=== PATIENT | male | born 1980 | race Caucasian/White ===

== ENCOUNTER 2017-08-29 09:09 | Emergency (ER) | payer OTHER ==
[~2017-08-29] VITALS: Ht 165.1 cm; Wt 73.0 kg
[2017-08-29 09:11] VITALS: BP 156/105; PULSE 85; RESP 15; TEMP 98.4; O2SAT 98
[2017-08-29 11:18] VITALS: BP 151/104; PULSE 86; RESP 19
[2017-08-29] MEDS ORDERED: GABA300C5 PO (11:18)
[2017-08-29] MEDS ORDERED: ALLO300T2 PO (11:18)
[2017-08-29] MEDS ORDERED: PROB500T8 PO (11:18)
[2017-08-29 11:21] VITALS: O2SAT 100
[2017-08-29] MEDS ORDERED: hydrALAZINE HCL 20 MG/ML VIAL IV PUSH ONE (11:30)
--- NOTE | 2017-08-29 11:30 | PD ---
HPI Chief Complaint: Hypertension Time Seen by Provider: 11:19 Travel History International Travel<30 days: No Contact w/Intl Traveler<30days: No Traveled to known affect area: No History of Present Illness HPI Patient comes in stating that he is noted that his blood pressures have been trending up over the last year and a half or so. Today he does not have any particular specific complaints, he was just referred here from [facility] where he was there for alcohol related to help. He is part of a program there and has been doing well for a while. Patient states that he has been under a little bit more stress than usual but as he stated before that he has noticed that his blood pressures have been climbing over the past couple of months. Patient states that he is not a drug abuser such as amphetamines or cocaine of any form. No known drug allergy History of bipolar, gout. PFSH Past Medical History Bipolar Disorder: Yes (NO MEDS) Gout: Yes Past Surgical History Surgical History: No Previous Surgery Social History Alcohol Use: Yes (OCCAS) Tobacco Use: No Substance Use: No (quit 4 months ago) Allergies-Medications (Allergen,Severity, Reaction): Coded Allergies: No Known Allergies (Unverified Adverse Reaction, Unknown, 08/29/17) Reported Meds & Prescriptions Reported Meds & Active Scripts Active Reported Probenecid 500 Mg Tab 250 Mg PO Q12HR Allopurinol 300 Mg Tab 300 Mg PO BID Gabapentin 300 Mg Cap 300 Mg PO BID Review of Systems Except as stated in HPI: all other systems reviewed are Neg General / Constitutional: No: Fever Eyes: No: Visual changes HENT: No: Headaches Cardiovascular: Positive: Other (Elevated blood pressure) Respiratory: No: Shortness of Breath Gastrointestinal: No: Abdominal Pain Genitourinary: No: Dysuria Musculoskeletal: No: Pain Skin: No Rash Neurologic: No: Weakness Psychiatric: No: Depression Endocrine: No: Polydipsia Hematologic/Lymphatic: No: Easy Bruising Physical Exam Narrative GENERAL: SKIN: Warm and dry. HEAD: Atraumatic. Normocephalic. EYES: Pupils equal and round. No scleral icterus. No injection or drainage. ENT: No nasal bleeding or discharge. Mucous membranes pink and moist. NECK: Trachea midline. No JVD. CARDIOVASCULAR: Regular rate and rhythm. RESPIRATORY: No accessory muscle use. Clear to auscultation. Breath sounds equal bilaterally. GASTROINTESTINAL: Abdomen soft, non-tender, nondistended. MUSCULOSKELETAL: Extremities without clubbing, cyanosis, or edema. No obvious deformities. NEUROLOGICAL: Awake and alert. No obvious cranial nerve deficits. Motor grossly within normal limits. Five out of 5 muscle strength in the arms and legs. Normal speech. PSYCHIATRIC: Appropriate mood and affect; insight and judgment normal. Data Data Last Documented VS Vital Signs Date Time Temp Pulse Resp B/P (MAP) Pulse Ox O2 Delivery O2 Flow Rate FiO2 08/29/17 12:00 100 16 152/88 (109) 99 Room Air 08/29/17 09:11 98.4 Orders Orders Electrocardiogram (08/29/17 10:17) Complete Blood Count With Diff (08/29/17 10:17) Basic Metabolic Panel (Bmp) (08/29/17 10:17) Ckmb (Isoenzyme) Profile (08/29/17 10:17) Troponin I (08/29/17 10:17) Iv Access Insert/Monitor (08/29/17 10:17) Ecg Monitoring (08/29/17 10:17) Oxygen Administration (08/29/17 10:17) Oximetry (08/29/17 10:17) Chest, Pa & Lat (08/29/17 10:17) Drug Screen, Random Urine (08/29/17 11:20) Hydralazine Inj (Apresoline Inj) (08/29/17 11:30) Labs Laboratory Tests Test 08/29/17 10:46 White Blood Count 7.6 TH/MM3 Red Blood Count 5.55 MIL/MM3 Hemoglobin 15.7 GM/DL Hematocrit 45.2 % Mean Corpuscular Volume 81.4 FL Mean Corpuscular Hemoglobin 28.2 PG Mean Corpuscular Hemoglobin Concent 34.7 % Red Cell Distribution Width 15.4 % Platelet Count 249 TH/MM3 Mean Platelet Volume 8.3 FL Neutrophils (%) (Auto) 67.8 % Lymphocytes (%) (Auto) 22.0 % Monocytes (%) (Auto) 7.8 % Eosinophils (%) (Auto) 1.4 % Basophils (%) (Auto) 1.0 % Neutrophils # (Auto) 5.1 TH/MM3 Lymphocytes # (Auto) 1.7 TH/MM3 Monocytes # (Auto) 0.6 TH/MM3 Eosinophils # (Auto) 0.1 TH/MM3 Basophils # (Auto) 0.1 TH/MM3 CBC Comment DIFF FINAL Differential Comment Blood Urea Nitrogen 14 MG/DL Creatinine 1.03 MG/DL Random Glucose 92 MG/DL Calcium Level 9.2 MG/DL Sodium Level 138 MEQ/L Potassium Level 4.4 MEQ/L Chloride Level 103 MEQ/L Carbon Dioxide Level 27.9 MEQ/L Anion Gap 7 MEQ/L Estimat Glomerular Filtration Rate 82 ML/MIN Total Creatine Kinase 64 U/L Troponin I LESS THAN 0.02 NG/ML MDM Medical Decision Making Medical Screen Exam Complete: Yes Emergency Medical Condition: Yes Medical Record Reviewed: Yes Interpretation(s) EKG shows normal sinus rhythm, 76 bpm, normal intervals, incomplete right bundle branch block pattern noted, however no prolongation of the QRS, LVH pattern noted, but no evidence of any STEMI pattern. Differential Diagnosis Anemia versus electrolyte imbalance versus kidney failure versus congestive heart failure versus illicit drug-induced Narrative Course Chest x-ray shows no acute cardiopulmonary abnormality identified per radiologist Electrolytes are all within normal limits including normal kidney functions normal GFR and a negative first set of cardiac enzymes CBC is also without any evidence of leukocytosis, no anemia normal platelet count and no left shift. Diagnosis Primary Impression: Hypertension Patient Instructions: General Instructions, Hypertension (DC) Scripts Lisinopril (Lisinopril) 40 Mg Tab 40 MG PO DAILY for Blood Pressure Management, #30 TAB 0 Refills Prov: Shilo Stapleton MD 08/29/17 Disposition: 01 DISCHARGE HOME Condition: Stable Shilo Stapleton MD Aug 29, 2017 11:30
[2017-08-29 11:43] LABS: AUTOMATED NEUTROPHIL # 5.1 TH/MM3 (1.8-7.7); BASOPHIL # 0.1 TH/MM3 (0-0.2); EOSINOPHIL # 0.1 TH/MM3 (0-0.4); EOSINOPHIL % 1.4 % (0.0-4.0); HEMATOCRIT 45.2 % (39.0-51.0); HEMOGLOBIN 15.7 GM/DL (13.0-17.0); LYMPHOCYTE # 1.7 TH/MM3 (1.0-4.8); MEAN CELL VOLUME 81.4 FL (80.0-100.0); MEAN CORPUSCULAR HEMOGLOBIN 28.2 PG (27.0-34.0); MEAN CORPUSCULAR HGB CONC 34.7 % (32.0-36.0); MEAN PLATELET VOLUME 8.3 FL (7.0-11.0); MONO % 7.8 % (0.0-8.0); MONOCYTE # 0.6 TH/MM3 (0-0.9); NEUT % 67.8 % (16.0-70.0); PLATELET COUNT 249 TH/MM3 (150-450); RED BLOOD COUNT 5.55 MIL/MM3 (4.50-5.90); RED CELL DISTRIBUTION WIDTH 15.4 % (11.6-17.2); WHITE BLOOD COUNT 7.6 TH/MM3 (4.0-11.0)
--- NOTE | 2017-08-29 11:52 | RADRPT ---
EXAM DATE/TIME: 08/29/2017 10:39 [facility] COMPARISON: No previous studies available for comparison. INDICATIONS : Chest pain. MEDICAL HISTORY : None. SURGICAL HISTORY : None. ENCOUNTER: Initial ACUITY: 1 day PAIN SCORE: 5/10 LOCATION: Left lower chest FINDINGS: PA and lateral views of the chest demonstrate a normal-sized cardiac silhouette. There is no effusion , consolidation, or pneumothorax. The bones and soft tissues demonstrate no acute abnormality. CONCLUSION: No acute cardiopulmonary abnormality is identified. Noe Schroeder MD on August 29, 2017 at 11:48 Board Certified Radiologist. This report was verified electronically.
[2017-08-29 12:00] VITALS: BP 152/88; PULSE 100; RESP 16; O2SAT 99
[2017-08-29 12:17] LABS: BICARBONATE 27.9 MEQ/L (21.0-32.0); BLOOD UREA NITROGEN 14 MG/DL (7-18); CALCIUM 9.2 MG/DL (8.5-10.1); CHLORIDE 103 MEQ/L (98-107); CREATININE 1.03 MG/DL (0.60-1.30); GLOMERULAR FILTRATION RATE 82 ML/MIN (>89); GLUCOSE,RANDOM 92 MG/DL (74-106); SODIUM (NA) 138 MEQ/L (136-145)
[2017-08-29 12:21] LABS: TROPONIN I LESS THAN 0.02 NG/ML (0.02-0.05)
[2017-08-29] MEDS ORDERED: LISI40TA PO (12:52)
[2017-08-29 13:29] VITALS: BP 141/95
--- NOTE | 2017-08-29 18:45 | EKG ---
Date Performed: 08/29/2017 Time Performed: 10:49:52 PTAGE: 37 years EKG: Sinus rhythm POSSIBLE RIGHT VENTRICULAR CONDUCTION DELAY BORDERLINE ECG NO PREVIOUS TRACING DOCTOR: Ozzy Mims Interpretating Date/Time 08/29/2017 18:41:51
== END 2017-08-29 13:40 | disposition home or self-care (01) ==
LOC: NEPD 09:09
DX: I10 Essential (primary) hypertension (principal); M10.9 Gout, unspecified; R07.9 Chest pain, unspecified; Z79.899 Other long term (current) drug therapy
CPT/HCPCS: 71046; 80048; 80307; 82550; 84484; 85025; 93005; 96374; 99285; J0360